=== PATIENT | female | born 1975 | race African-American/Black ===

== ENCOUNTER 2017-05-15 00:53 | Emergency (ER) | payer MEDICAID ==
[~2017-05-15] VITALS: Ht 162.6 cm; Wt 83.0 kg
[2017-05-15 02:38] VITALS: BP 110/68
== END 2017-05-15 02:53 | disposition home or self-care (01) ==
LOC: ER 00:53
DX: F41.1 Generalized anxiety disorder (principal); Z88.6 Allergy status to analgesic agent
CPT/HCPCS: 99284; Z7610